=== PATIENT | female | born 1965 | race Caucasian/White ===

== ENCOUNTER 2022-09-18 18:00 | Emergency (ER) | payer SELFPAY ==
[~2022-09-18] VITALS: Ht 175.3 cm; Wt 81.8 kg
[2022-09-18 18:13] VITALS: BP 148/86
== END 2022-09-18 18:50 ==
LOC: ER 18:01
DX: R07.81 Pleurodynia (principal); Z00.8 Encounter for other general examination
CPT/HCPCS: 71045; 99283

== ENCOUNTER 2024-02-15 11:21 | Emergency (ER) | payer OTHER ==
[~2024-02-15] VITALS: Ht 175.3 cm; Wt 90.9 kg
[2024-02-15 11:26] VITALS: BP 121/99; PULSE 89; RESP 16; TEMP 98.1; O2SAT 95
[2024-02-15 12:04] LABS: BASOPHILS % (AUTO) 0.1 % (0-1); EOSINOPHILS % (AUTO) 0.3 % (0-6); HEMATOCRIT 50.1 % (35.0-45.0); HEMOGLOBIN 16.2 g/dl (12.0-16.0); LYMPHOCYTES # (AUTO) 1.6 X10'3 (1.1-4.8); LYMPHOCYTES % (AUTO) 15.9 % (21-51); MEAN CORPUSCULAR HEMOGLOBIN 28.2 PG (27.0-31.0); MEAN CORPUSCULAR HGB CONC 32.4 g/dL (33.0-36.5); MEAN CORPUSCULAR VOLUME 86.9 FL (78-98); MEAN PLATELET VOLUME 10.7 FL (7.4-10.4); MONOCYTES # (AUTO) 0.4 X10'3 (0-0.9); MONOCYTES % (AUTO) 4.1 % (2-12); NEUTROPHILS # (AUTO) 7.8 X10'3 (1.8-7.7); NEUTROPHILS % (AUTO) 79.6 % (42-75); PLATELET COUNT 126 X10'3 (140-440); RED BLOOD COUNT 5.76 X10'6 (4.20-5.60); RED CELL DISTRIBUTION WIDTH 15.2 % (11.5-14.5); WHITE BLOOD COUNT 9.8 X10'3 (4.5-11.0)
[2024-02-15 12:06] LABS: ALBUMIN 3.6 G/DL (3.4-5.0); ANION GAP 8 (8-16); BLOOD UREA NITROGEN 27 MG/DL (7-18); BUN/CREATININE RATIO 22.1 (10.0-20.0); CALCIUM 9.3 MG/DL (8.5-10.1); CHLORIDE 110 MMOL/L (99-107); CREATININE 1.22 MG/DL (0.40-0.90); GLUCOSE 116 MG/DL (70-104); LIPASE 37 U/L (16-77); POTASSIUM 4.4 MMOL/L (3.5-5.1); SODIUM 145 MMOL/L (135-145); TOTAL CARBON DIOXIDE 26.6 MMOL/L (24-32); eCRCL 51 ML/MIN; eGFR 45 ML/MIN
--- NOTE | 2024-02-15 13:00 | NUR ---
pt not in lobby when called for vitals update
--- NOTE | 2024-02-15 13:58 | NUR ---
PT STILL NOT IN LOBBY FOR VITALS RE-CHECK
--- NOTE | 2024-02-15 14:56 | NUR ---
not in lobby call x4
== END 2024-02-15 14:57 | disposition left against medical advice (07) ==
LOC: ER 11:22
DX: R11.2 Nausea with vomiting, unspecified (principal); Z53.21 Procedure and treatment not carried out due to patient leaving prior to being seen by health care provider
CPT/HCPCS: 80048; 83690; 84484; 85025

== ENCOUNTER 2024-02-17 13:18 | Emergency (ER) | payer BC, OTHER ==
[~2024-02-17] VITALS: Ht 175.3 cm; Wt 88.8 kg
[2024-02-17 13:24] VITALS: BP 165/90; PULSE 101; RESP 18; TEMP 97.2; O2SAT 98
== END 2024-02-17 15:30 | disposition left against medical advice (07) ==
LOC: ER 13:19
DX: H92.01 Otalgia, right ear (principal); R42 Dizziness and giddiness; Z53.21 Procedure and treatment not carried out due to patient leaving prior to being seen by health care provider